=== PATIENT | female | born 1950 | race Caucasian/White ===

== ENCOUNTER 2025-03-10 09:39 | Observation (INO) ==
--- NOTE | 2025-02-09 10:18 | PAT Medication Instructions ---
Medication Instructions Date of Service February 09, 2025 Home Medications calcium carbonate 600 mg PO BID multivitamin 1 tab PO DAILY cholecalciferol (vitamin D3) 125 mcg (5,000 unit) tablet (Vitamin D3) 125 mcg PO QAM turmeric 400 mg capsule 400 mg PO TID STOP taking 2 weeks before surgery (or as soon as possible if surgery is within 2 weeks) turmeric 400 mg capsule 400 mg PO TID DO NOT take the morning of surgery calcium carbonate 600 mg PO BID multivitamin 1 tab PO DAILY cholecalciferol (vitamin D3) 125 mcg (5,000 unit) tablet (Vitamin D3) 125 mcg PO QAM Take evening before surgery calcium carbonate 600 mg PO BID Other Notes NOTHING TO EAT OR DRINK AFTER MIDNIGHT. If you have any questions please call us at [phone] or [phone] or [phone] or [phone]
--- NOTE | 2025-02-11 09:58 | Anesthesiology Consultation ---
Date of Service February 11, 2025 Assessment & Plan (1) Encounter for pre-operative examination: - awaiting surgeon ordered PCP clearance 02/15/25, Dr. Zoey Reyes. - Outpatient joint assessment: Patient is currently scheduled for inpatient pathway. If re-evaluated and patient/surgeon requests outpatient pathway, patient is not ideal candidate for outpatient joint program. Chart Review Chart Review: Pending: Refer to Additional Notes / Consult section and Patient seen in Pre Admission Testing Teaching & Discussion Pre-Anesthesia Teaching/Discussion Notes: Instructed NPO after midnight before surgery, except medications with 15 cc of water. Medication instructions provided according to the PAT guidelines. History Surgery Operation Date: 03/10/25 10:25 Proposed Procedures p Left Total Hip Arthroplasty - Dexter Gupta MD Height/Weight Height: 5 ft 5 in Weight: 76.2 kg Allergies Allergy/AdvReac Type Severity Reaction Status Date / Time No Known Allergies Allergy Verified 02/09/25 08:04 Medications Home Medications Medication Instructions Recorded Confirmed Last Taken calcium carbonate 600 mg PO BID 07/05/19 02/09/25 Unknown multivitamin 1 tab PO DAILY 07/05/19 02/09/25 Unknown cholecalciferol (vitamin D3) 125 125 mcg PO QAM 02/09/25 02/09/25 Unknown mcg (5,000 unit) tablet (Vitamin D3) turmeric 400 mg capsule 400 mg PO TID 02/09/25 02/09/25 Unknown doxycycline hyclate 100 mg tablet 100 mg PO BID 02/11/25 02/11/25 Unknown Past Medical History Medical History (Updated 02/11/25 @ 12:38 by Cristina Siegel PA-C) Goiter Monitoring-reports WNL TSH 12/2024 History of Lyme disease original infection 07/2023 and treated with doxycycline at that time. 07/2024 had testing done which showed active infection, finished doxycycline but had persistent bilat leg pain- currently on doxycycline x 15 days-ongoing monitoring with PCP-severe pain improved after seeing chiropractor Multiple thyroid nodules Monitoring Patient denies h/o stroke, seizures, heart attack, heart failure, DM, HTN, blood clots/DVTs or blood transfusions. Exercise / Class Metabolic Activity II 4-5 Yardwork/Stairs/Walk up hill (denies chest discomfort or shortness of breath with one flight of stairs) Past Surgical History Surgical History History of colonoscopy History of tonsillectomy History of tooth extraction Upper Dentures/Lower Partial Past Anesthesia History No Hx of Anesthesia Complications and No Family Hx of Anesthesia Complications History of PONV No Hx of PONV and Hx of Motion Sickness Social History Smoking Status: Never smoker Do You Dip or Chew Tobacco: No Hx Alcohol Use: No Hx Substance Use: No substance use type: does not use Review of Systems Patient denies chest pain, shortness of breath, dyspnea on exertion, snoring, witnessed apneas, reflux, fever, chills, cough, wheezing, or palpitations. Physical Exam Vital Signs Vitals BP 122/78 P 80 TEMP 97.8 SP02 98% on RA RESP 18 Physical Patient resting comfortably in chair in no acute distress, alert and oriented, responding appropriately throughout visit Full cervical extension range of motion without pain TMD 3.5 finger breadths Mallampati Score 2 Dentition: upper dentures, lower bridge Lungs: normal respiratory effort. Good air movement, clear throughout to auscultation, no adventitious breath sounds Cardiac: regular rate and rhythm, no murmurs noted Carotid arteries: negative bruit bilat Lab Results Anesthesia Preop Results Results Anesthesia Widget: WBC 4.93 K/ul (4.8-10.8) 02/11/25 Hgb 13.6 g/dl (12.0-16.0) 02/11/25 Hct 41.3 % (37.0-47.0) 02/11/25 Plt 246 K/uL (130-400) 02/11/25 Na 143 mmol/L (136-145) 02/11/25 K 4.7 mmol/L (3.5-5.1) 02/11/25 Cl 107 mmol/L (98-107) 02/11/25 CO2 33 mmol/L (21-32) H 02/11/25 BUN 20 mg/dl (6-23) 02/11/25 Creat 0.91 mg/dl (0.6-1.2) 02/11/25 Glucose Level 96 mg/dl (70-99(Fasting)) 02/11/25 PT 10.6 Seconds (9.0-12.0) 02/11/25 PTT 25 Seconds (21-31) 02/11/25 INR 1.0 (0.9-1.1) 02/11/25 Urine Color Yellow 02/11/25 Urine Appearance Clear (Clear) 02/11/25 Urine pH 7.5 (4.5-7.5) 02/11/25 Urine Specific [place] 1.011 (1.000-1.030) 02/11/25 Urine Protein Negative (Negative) 02/11/25 Urine Glucose (UA) Negative (Negative) 02/11/25 Urine Ketones Negative (Negative) 02/11/25 Urine Blood Negative (Negative) 02/11/25 Urine Nitrite Negative (Negative) 02/11/25 Urine Bilirubin Negative (Negative) 02/11/25 Urine Urobilinogen Negative (Negative) 02/11/25 Urine Leukocyte Esterase Negative (Negative) 02/11/25 Blood Type A Positive 02/11/25 Antibody Screen NEGATIVE 02/11/25 Testing Electrocardiogram Date: 02/11/25 NSR, rate 76 bpm Echocardiogram Date: 12/15/24 EF 65% Mildly hypertrophied LV wall thickness Mildly sclerotic aortic root Impaired LV relaxation with mildly elevated LV filling pressures
[~2025-03-10 09:39] MED LIST: ACETAMINOPHEN 500 MG TAB PO SCH; BUPIVACAINE 0.5 % 5 MG/1 ML PF 10ML VIAL ONE; CeleBREX 200 MG CAP PO SCH; FAMOTIDINE 20 MG TAB PO SCH; LR 500ML BOLUS, THEN 15ML/HR IV SCH; MIDAZOLAM HCL 1 MG/ML 2ML VIAL ONE; ONDANSETRON INJ 2 MG/ML 2 ML VIAL ONE; PROPOFOL IV EMULSION 10 MG/ML 100 ML VIAL IV ONE; ROPIV 0.5% 246mg, Ketorolac 30mg, EPINEPHrine 0.5mg in NSS INFIL SCH; Scopolamine 1 MG TDSY TD SCH; TRANEXAMIC ACID 1,000 MG **IV Intra-op IV SCH; TRANEXAMIC ACID 1,000 MG **IV Pre-op IV SCH; ceFAZolin 2000MG 2,000 MG/15 ML SYR IV SCH; dexAMETHasone**PF** 10 MG/ML VIAL IV SCH; fentaNYL citrate PF 100 MCG/2 ML VIAL ONE; traMADol HCL 50 MG TABLET PO SCH
--- NOTE | 2025-03-10 09:46 | History & Physical Bridge Note ---
Date of Service March 10, 2025 History & Physical Bridge Note I have examined the patient, reviewed the History & Physical and in the interval since the performance of the History & Physical I have noted the following changes of clinical significance: no changes noted
[2025-03-10] MEDS: dexAMETHasone**PF** 10 MG/ML VIAL IV SCH (10:13)
[2025-03-10] MEDS: ACETAMINOPHEN 500 MG TAB PO SCH ×2 (10:13→14:23)
[2025-03-10] MEDS: LR 500ML BOLUS, THEN 15ML/HR IV SCH (10:13)
[2025-03-10] MEDS: CeleBREX 200 MG CAP PO SCH (10:14)
[2025-03-10] MEDS: traMADol HCL 50 MG TABLET PO SCH (10:14)
[2025-03-10] MEDS: FAMOTIDINE 20 MG TAB PO SCH (10:14)
[2025-03-10] MEDS: Scopolamine 1 MG TDSY TD SCH (10:14)
[2025-03-10] MEDS: LR 60ML/HR IV SCH (10:15)
[2025-03-10] MEDS: TRANEXAMIC ACID 1,000 MG **IV Pre-op IV SCH (10:30)
[2025-03-10] MEDS: ceFAZolin 2000MG 2,000 MG/15 ML SYR IV SCH (10:41)
[2025-03-10] MEDS ORDERED: HYDROmorphone INJ 1 MG/ML SYRINGE IV PRN (10:42)
[2025-03-10] MEDS ORDERED: ONDANSETRON INJ 2 MG/ML 2 ML VIAL IV PRN ×2 (10:42→13:48)
[2025-03-10] MEDS ORDERED: ATROPINE SULFATE 0.1 MG/ML 10ML SYR IV PRN (10:42)
[2025-03-10] MEDS ORDERED: HYDROmorphone INJ 2 MG/ML SYR/VIAL IV PRN (10:42)
[2025-03-10] MEDS ORDERED: ePHEDrine sulfate 50 MG/ML AMP IV PRN (10:42)
[2025-03-10] MEDS: ROPIV 0.5% 246mg, Ketorolac 30mg, EPINEPHrine 0.5mg in NSS INFIL SCH (11:08)
[2025-03-10] MEDS: ORTHO JOINT ANESTHETIC ONE (11:08)
[2025-03-10] MEDS: TRANEXAMIC ACID 1,000 MG **IV Intra-op IV SCH (11:43)
--- NOTE | 2025-03-10 12:11 | Operative Report ---
Post Operative Report Pre & Post Diagnosis Operation Date: 03/10/25 10:25 Pre-Op Diagnosis: Left Hip Osteoarthritis Post-Op Diagnosis: Left Hip Osteoarthritis I identified the patient and participated in the time-out.: Yes Procedure Operation Date: 03/10/25 10:25 Actual Procedures p Left Total Hip Arthroplasty, Uncemented(Left) - Dexter Gupta MD Surgeon Dexter Gupta MD Line Director Yadiel Palm PA-C. No resident or fellow was available to assist Estimated Blood Loss 100 Findings Consistent with Post-Op Diagnosis Specimens Left femoral head Anesthesia Type Spinal MAC Complications none Disposition Disposition: Recovery Room Indications 75-year-old female, with left hip osteoarthritis refractory to conservative management. X-rays demonstrate joint space destruction, subchondral sclerosis and cysts. I had a long discussion with her about the risks and benefits of surgery, alternatives to surgery, and expected outcomes. After reviewing all these she elected to proceed with surgery. All questions were answered. Informed consent was signed. Description of Procedure Patient was identified in the preoperative holding area where the surgical site, left hip, was marked. A spinal anesthetic was placed, then the patient was brought back to the main operating room, placed in the operating table and moved into the lateral decubitus position. Axillary roll was placed. All bony prominences were padded. Perioperative antibiotics and tranexamic acid 1 gram IV were administered. The operative extremity was prepped and draped in the normal sterile fashion. Prior to incision a multidisciplinary timeout was called. All in the room were in agreement. We began by making an incision for a posterior approach to the hip. We dissected down through subcutaneous tissues to the level of the fascia. The fascia was incised in line with the incision. Charnley bow was placed. Fatty tissue was reflected posteriorly off the back of the greater trochanter to ex pose the piriformis and short external rotators of the hip. Quadratus femoris was taken off the femur subperiosteally. The piriformis and short external rotators were dissected off the posterior aspect of the hip. A box cut was made in the capsule. Inferior hip capsule was released off the femur. The femoral head was dislocated. The femoral neck cut was made at our preoperative template. The acetabulum was then exposed. The labrum was sharply excised. Contents of the cotyloid fossa were removed with electrocautery. We then began reaming at a size 8 mm less than our preoperative template. We reamed up by [address] the way up to a size 50 mm cup. This gave us good bleeding cancellus bone circumferentially. The acetabulum was then irrigated out and dried. The real [place] Gription cup was then impacted down into position with 45 degrees of lateral opening and 25 degrees of anteversion. A single cancellous bone screw was placed up into the ilium. Excellent fixation was obtained. A trial liner for a 32 mm femoral head was then placed. Next we turned our attention to the femur. The lateral neck was removed with a box osteotome. Intramedullary guide was used to establish the intramedullary canal. We then broached all the way up to a size 4. We began trialing with a high offset neck and a +5 head. Hip was reduced. Leg lengths were symmetric. The hip was stable in extension and external rotation, and stable in the sleeper position. At 90 degrees of hip flexion the hip could be internally rotated 75 degrees before levering out of the cup. I was very happy with the stability exam. Therefore the hip was dislocated and the femoral trial was removed. The acetabulum was re-exposed, and the trial liner was removed. [place] hole eliminator screw was placed. An Altrx polyethylene liner for a 32 mm femoral head was then impacted into the shell. The locking mechanism was checked to ensure that it had engaged which it had. The femur was re-exposed. The femoral canal was irrigated and dried. The real Actis femoral stem was opened up. This was impacted down into position. The femoral head was opened up and gently impacted down onto the trunnion. The hip was atraumatically reduced. Another 1 gram of IV tranexamic acid was started prior to closure. The wound was irrigated out with sterile Betadine solution. The periarticular injection cocktail was then placed. The short external rotators, piriformis, and posterior capsule were repaired through drill holes in the greater trochanter using #2 Vicryl. The fascia was run with a looped #1 PDS. The subcutaneous layer was closed with #1 PDS. The dermal layer was closed with 2-0 Vicryl. Zip line was used for the skin followed by a Silverlon dressing. A compressive dressing was then placed. The patient was then rolled supine. Leg lengths were rechecked and were symmetric. An abduction pillow was placed. Sedation was lifted and the patient was transferred to the recovery room in stable condition. Summary of implants: Depuy [place] Gription Acetabular Shell Sector Cup, 50 mm outer diameter [place] Cancellous bone screw, 6.5 x 35 mm [place] hole eliminator [place] Altrx Polyethylene Acetabular Liner, Neutral, with a 32 mm inner diameter DePuy Actis collared cementless Femoral stem, 12/14 taper, size 4 high offset 32 mm ceramic femoral head with +5 offset Postoperative course: Patient will be admitted overnight from the recovery room. Patient will be weightbearing as tolerated with posterior hip precautions. Aspirin for DVT prophylaxis I attest to the content of the Intraoperative Record and any orders documented therein. Any exceptions are noted below.
--- NOTE | 2025-03-10 12:31 | Operative Report ---
Post Operative Report Pre & Post Diagnosis Operation Date: 03/10/25 10:25 Pre-Op Diagnosis: Left Hip Osteoarthritis Post-Op Diagnosis: Left Hip Osteoarthritis I identified the patient and participated in the time-out.: Yes Procedure Operation Date: 03/10/25 10:25 Actual Procedures p Left Total Hip Arthroplasty, Uncemented(Left) - Dexter Gupta MD Surgeon Dexter Gupta MD Grain Trimmer Yadiel Palm PA-C. No resident or fellow was available to assist Estimated Blood Loss 100 Findings Consistent with Post-Op Diagnosis Specimens Femoral head Description of Procedure I was present for the entire case. I assisted with patient positioning, prepping, draping, retraction, suctioning, wound closure, dressing application. Please refer to Dr. Gupta's procedure note for full details. I attest to the content of the Intraoperative Record and any orders documented therein. Any exceptions are noted below.
--- NOTE | 2025-03-10 12:59 | XRay Report ---
XR pelvis 1-2V routine CLINICAL HISTORY: In PACU - Post Surgical COMPARISON: 02/11/2025 FINDINGS: Left hip prosthesis shows no hardware complication. There is expected soft tissue gas. IMPRESSION: Unremarkable postoperative exam. ACT 112: Negative or not required by law. Electronically signed by: Sandro Mccarthy M.D. 03/10/2025 12:58 PM
--- NOTE | 2025-03-10 13:34 | Anesthesiology Progress Note ---
Date of Service March 10, 2025 Anesthesia Post Procedure Vital Signs Vital Signs: Temp Pulse Resp BP BP Pulse Ox O2 Del Method 03/10/25 13:30 74 12 122/59 L 95 Room Air 03/10/25 13:15 76 14 123/65 94 Room Air 03/10/25 13:05 36.3 C L 77 16 126/64 93 Room Air 03/10/25 12:55 76 12 124/68 94 Room Air 03/10/25 12:45 36.4 C L 77 12 125/66 95 Room Air 03/10/25 12:35 71 12 111/57 L 100 Oxymask 03/10/25 12:25 74 16 112/61 100 Oxymask 03/10/25 12:18 36.6 C 75 14 118/64 100 Oxymask 03/10/25 10:02 36.7 C 90 22 148/77 H 98 Room Air O2 Flow Rate 03/10/25 13:30 03/10/25 13:15 03/10/25 13:05 03/10/25 12:55 03/10/25 12:45 03/10/25 12:35 4 03/10/25 12:25 4 03/10/25 12:18 6 03/10/25 10:02 Transfer of Care Handoff Completed per policy Notes Mental Status: alert / awake / arousable Patient Amnestic to Procedure: Yes Nausea / Vomiting: adequately controlled Pain: adequately controlled Airway Patency, RR, SpO2: stable & adequate BP & HR: stable & adequate Hydration State: stable & adequate Neuraxial Anesthesia: was administered and sensory block is resolving Anesthetic Complications: no major complications apparent and Pt Satisfied with anesthetic care
[2025-03-10] MEDS ORDERED: bisacodyL 10 MG SUPP PR PRN (13:48)
[2025-03-10] MEDS ORDERED: HYDROmorphone INJ 0.5 MG/0.5 ML SYR IV PRN (13:48)
[2025-03-10] MEDS ORDERED: METOCLOPRAMIDE HCL INJ 5 MG/ML 2 ML VIAL IV PRN (13:48)
[2025-03-10] MEDS ORDERED: ALUMINUM/MAGNESIUM SUSP 30 ML UDC PO PRN (13:48)
[2025-03-10] MEDS ORDERED: MAGNESIUM HYDROXIDE SUSP 30 ML UDC PO PRN (13:48)
[2025-03-10] MEDS ORDERED: diphenhydrAMINE Capsule 25 MG CAP PO PRN (13:48)
[2025-03-10] MEDS ORDERED: NALOXONE HCL 0.4 MG/1 ML VIAL/CARP IV PRN (13:48)
[2025-03-10] MEDS: SODIUM CHLORIDE 0.9% 1,000 ML IV SCH (14:17)
[2025-03-10] MEDS: Scopolamine CHECK PATCH PLACEMENT SCH (14:21)
[2025-03-10] MEDS: KETOROLAC TROMETHAMINE 15 MG/ML VIAL IV SCH (14:23)
[2025-03-10] MEDS ORDERED: Scopolamine CHECK PATCH PLACEMENT SCH ×2 (16:00)
[2025-03-10] MEDS: ceFAZolin 1000MG 1,000 MG/7.5 ML SYR IV SCH (17:53)
[2025-03-10] MEDS: TRANEXAMIC ACID / 0.7% NACL 1,000 MG/100 ML BAG IV SCH (17:54)
[2025-03-10] MEDS: oxyCODONE HCL IR 5 MG TAB (IMMEDIATE RELEASE) PO PRN (18:03)
[2025-03-10] MEDS ORDERED: NON-FORMULARY MEDICATION (Doxycycline Hyclate 100 mg Tablet) PO SCH (21:00)
[2025-03-10] MEDS: SENNA 8.6 MG TAB PO SCH (21:03)
[2025-03-10] MEDS: DOCUSATE SODIUM 100 MG CAP PO SCH (21:03)
[2025-03-10] MEDS: CALCIUM CARBONATE 1250MG TAB PO SCH (23:29)
[2025-03-11 06:15] LABS: Basophils # (auto) 0.02 K/uL (0.00-0.20); Basophils % (auto) 0.2 %; Hematocrit (blood only) 34.9 % (37.0-47.0); Hemoglobin 11.3 g/dl (12.0-16.0); Immature Granulocytes # (auto) 0.04 K/uL (0.01-0.20); Immature Granulocytes % (auto) 0.3 %; Lymphocytes # (auto) 1.04 K/uL (1.20-3.40); Lymphocytes % (auto) 8.9 %; Mean Corpuscular Hemoglobin 29.4 pg (25.0-34.0); Mean Corpuscular Hgb Conc 32.4 g/dL (32.0-36.0); Mean Corpuscular Volume 90.9 fL (80.0-100.0); Mean Platelet Volume 10.8 fL (9.4-12.4); Monocytes # (auto) 1.12 K/uL (0.11-0.59); Monocytes % (auto) 9.6 %; Platelet Count 199 K/uL (130-400); RDW Standard Deviation 43.3 fL (36.4-46.3); Red Blood Count 3.84 M/uL (4.20-5.40); White Blood Count 11.72 K/ul (4.8-10.8)
[2025-03-11 06:37] LABS: BUN Creatinine Ratio 24.2 (10-20); Calcium 8.5 mg/dl (8.6-10.3); Creatinine Clr Calc Pharmacy 54.1 ml/min; Potassium 4.3 mmol/L (3.5-5.1)
[2025-03-11 08:01] VITALS: BP 123/68; PULSE 90; RESP 16; TEMP 97.7; O2SAT 97
[2025-03-11] MEDS ORDERED: NON-FORMULARY MEDICATION (Multivitamin tablet) PO SCH (09:00)
[2025-03-11] MEDS: dexAMETHasone 10 MG in SYRINGE 0 ML IV SCH (09:27)
[2025-03-11] MEDS: CHOLECALCIFEROL 125 MCG (5,000 UNITS) TAB PO SCH (09:28)
[2025-03-11] MEDS: ASPIRIN 81 MG ECTAB PO SCH (09:28)
[2025-03-11] MEDS: MULTIVITAMIN TAB PO SCH (09:28)
--- NOTE | 2025-03-11 10:58 | Orthopedic Progress Note ---
Date of Service March 11, 2025 Assessment & Plan (1) S/P total left hip arthroplasty: Plan: Postop day #1 status post left total hip arthroplasty with Dr. Gupta. Patient seems to be doing very well overall overall. Vital signs have remained stable. Postoperative labs show a mild leukocytosis at 11.72 likely secondary to surgery and steroids. No evidence of infection. Mild hemoglobin 11.3 likely secondary to acute blood loss from surgery. No thrombocytopenia. Postoperative x-ray shows expected findings with no concerns. Patient's overlying dressing was removed and silverlon dressing is clean, dry, intact. This will be left in place for the next 2 weeks. She can shower with this as long as the dressing is intact. Do not submerge underwater. We reviewed hip precautions and using the walker at all times for balance. Pain control with Tylenol, diclofenac, and oxycodone. PDMP reviewed with no concerns. Prescriptions for oxycodone and diclofenac were sent to pharmacy. DVT prophylaxis with JOHNNY stockings and aspirin 81 mg twice daily for the next 30 days. Icing instructions reviewed. Patient will participate with home health therapy for the next 2 weeks, and then has plans for outpatient physical therapy to begin after that. She has a 2-week follow-up appointment scheduled with our office. Patient was instructed to contact our office with any questions or concerns in the interim. Admission and Anticipated Discharge Date Admission Date: March 10, 2025 Mago Mccormick is seen in bed this morning. She states that she is doing well overall. Does not have any pain at rest but feels a little uncomfortable in her hip when she tries to move the hip. She feels this is expected type of pain. She denies any fevers, chills, chest pain, shortness of breath, nausea, vomiting, numbness or tingling in her left lower extremity. She feels comfortable going home today. Physical Exam Constitutional: Well-developed, well-nourished, resting comfortably in bed. No distress. Pleasant. Cardiovascular: Left DP and PT pulse 2+ Musculoskeletal: Left lower extremity: Bulky dressing taken down. Silverlon dressing is clean, dry, intact. There is no drainage or ecchymotic changes. Hip and buttock without induration. No surrounding erythema. Strength 5/5 with ankle plantarflexion, dorsiflexion, eversion. Moves all toes. JOHNNY stockings are in place bilateral lower extremities Skin: [place] and warm, dry. Capillary refill less than 2 seconds in left toes Neurologic: No sensory deficits left lower extremity L3-S1 distribution Results & Data Vital Signs (Past 12 Hours) Vital Signs Temp Pulse Resp BP Pulse Ox O2 Del Method 03/11/25 08:00 97.7 F 90 16 123/68 97 Room Air 03/11/25 03:00 97.5 F L 67 17 108/73 95 Room Air 03/10/25 23:08 97.5 F L 65 18 100/65 95 Room Air Laboratory Results 03/11/25 05:37 WBC 11.72 H RBC 3.84 L Hgb 11.3 L Hct 34.9 L MCV 90.9 MCH 29.4 MCHC 32.4 RDW Std Deviation 43.3 RDW Coeff of Carla 13.0 Plt Count 199 MPV 10.8 Immature Gran % (Auto) 0.3 Neut % (Auto) 81.0 Lymph % (Auto) 8.9 Ward % (Auto) 9.6 Eos % (Auto) 0.0 Baso % (Auto) 0.2 Neut # (Auto) 9.50 H Lymph # (Auto) 1.04 L Ward # (Auto) 1.12 H Eos # (Auto) 0.00 Baso # (Auto) 0.02 Immature Gran # (Auto) 0.04 Sodium 140 Potassium 4.3 Chloride 109 H Carbon Dioxide 27 Anion Gap 4 BUN 22 Creatinine 0.91 Est Cr Clr Drug Dosing 54.1 eGFR 65.79 BUN/Creatinine Ratio 24.2 H Glucose 111 H Calcium 8.5 L Diagnostic Findings Pelvis X-Ray 03/10/25 12:28 XR pelvis 1-2V routine CLINICAL HISTORY: In PACU - Post Surgical COMPARISON: 02/11/2025 FINDINGS: Left hip prosthesis shows no hardware complication. There is expected soft tissue gas. IMPRESSION: Unremarkable postoperative exam. ACT 112: Negative or not required by law. Electronically signed by: Sandro Mccarthy M.D. 03/10/2025 12:58 PM
--- NOTE | 2025-03-11 11:05 | Discharge Summary ---
Date of Service March 11, 2025 Principal Diagnosis Status post left total hip arthroplasty Discharge Data Allergies Allergy/AdvReac Type Severity Reaction Status Date / Time No Known Allergies Allergy Verified 03/10/25 09:49 Procedures Performed Operation Date: 03/10/25 10:25 Actual Procedures p Left Total Hip Arthroplasty, Uncemented(Left) - Dexter Gupta MD Hospital Course (1) S/P total left hip arthroplasty: Anny is a 75-year-old female who underwent an uncomplicated left total hip arthroplasty with Dr. Gupta at [facility] on 03/10/2025. She was admitted to the hospital overnight and received 24 hours of IV Ancef. Her pain was well-controlled and she did not have any complications. Vital signs remained stable. Postoperative labs show a mild leukocytosis at 11.72 likely secondary to surgery and steroids. No evidence of infection. Mild hemoglobin 11.3 likely secondary to acute blood loss from surgery. No thrombocytopenia. Postoperative x-ray shows expected findings with no concerns. Patient participated with physical therapy and Occupational Therapy and was deemed appropriate to be discharged home with home health services for the first 2 weeks followed by outpatient physical therapy to begin in 2 weeks. Precautions were reviewed. She will be weightbearing as tolerated with a walker at all times for balance. She has a Silverlon dressing in place that will be left in place for the next 2 weeks and can shower with this as long as the dressing is intact. Do not submerge underwater. Pain control with Tylenol, diclofenac, and oxycodone. PDMP reviewed with no concerns. Prescriptions for oxycodone and diclofenac were sent to pharmacy. DVT prophylaxis with JOHNNY stockings and aspirin 81 mg twice daily for the next 30 days. Icing instructions were reviewed. Patient has a 2-week follow-up scheduled in our office. She was given instructions to contact our office with any questions or concerns in the interim. Total Time Total Time Spent Total Time Spent (In Minutes): 20 Discharge Plan Discharge Items Patient Disposition: Home - Home Health Services Reason For Visit: Left Hip Osteoarthritis Discharge Diagnosis: s/p left total hip arthroplasty Activity: Per Instructions section Non-emergency contact: Surgeon Call non-emergency contact if: your pain is not controlled, you have a fever, your wound has increased redness, your wound has increased drainage and your wound pain has increased Follow-up/Referrals: Zoey Campo MD [Primary Care Provider] - Earl Hsieh PA-C [Physician Bending Press Operator] - 03/23/25 9:30 am Diet: Regular Addtl Attending Provider Instructions: Post-operative Instructions Dear Patient and Family/Friends, Before you are discharged from the hospital, it is important to know what to expect when you get home after surgery. To that end, we have created this sheet of discharge instructions which covers many commonly asked questions. Make sure you go through this sheet in its entirety with your nurse before you are discharged. Please note that we will go over the specifics of your surgery and recovery when you return for your first post-operative visit. Sincerely, Dr. Gupta Pain Expect to be in a fair amount of pain after surgery. Remember, our goal is not to eliminate your pain, but to make it tolerable. It is a good idea to stay ahead of your pain by taking the medications you were prescribed once you get home. Typically, the pain starts improving 3-7 days after surgery. You should start weaning off the narcotic pain medication (oxycodone, hydrocodone, hydromorphone, morphine) as soon as your pain improves. Please call our office if your pain is not adequately controlled. - Tylenol 1000 mg every 8 hours Diclofenac 75 mg twice daily as prescribed Oxycodone as prescribed for breakthrough pain. Blood clot prevention -Aspirin 81 mg twice daily for 30 days. You received a dose this morning. Start with a dose this evening. Ice Ice your operative site at least 5 times a day for 15-30 minutes at a time. Make sure you have a thin cloth between the ice or cooling unit and your skin to prevent stevenson bite. This is especially important if you received a nerve block. Continue icing your operative site for the first 5-7 days after surgery, then as needed. Diet/Nausea/Vomiting Start by drinking clear liquids and eating crackers. If you can tolerate this, then you may resume your normal diet. Please call our office if you have intractable nausea or vomiting, or, if after hours, you may go to the Emergency Room for help. Constipation Constipation is a common side effect of narcotic pain medication. If you have not had a bowel movement within 2 days after surgery, we recommend purchasing an over the counter laxative such as Milk of Magnesia, Dulcolax, or Miralax from a local pharmacy, and taking it as instructed. Call our clinic if any questions. Nerve block The anesthesia team sometimes places a nerve block to help with post-operative pain control. This results in significant numbness and inability to move the extremity. The nerve block usually wears off in 8-12 hours, but sometimes can last up to 24 hours. Nerve blocks typically wear off quickly, so start taking pain medication as soon as you start feeling soreness near your surgical site. Weight bearing and Range of Motion. You can be weightbearing as tolerated with the use of a walker at all times. Be sure to pay close attention to the hip or cautions as advised Physical therapy You will have home physical therapy for the first 2 weeks after surgery. Please ensure you have outpatient physical therapy coordinated to begin after your 2- week follow-up appointment in our office. Wound care and showering Leave the rubber silverlon dressing in place until your 2-week follow-up appointment. As long as the dressing is intact, you can shower. Do not submerge your wound underwater. Monitor for increase in drainage into the dressing. JOHNNY stockings If you were given white stockings, these are to be worn at all times except to shower (on both legs) for the first 2 weeks after surgery. Driving You may not drive while taking narcotic pain medication or while in a cast, splint, sling or brace. You, the patient, need to make the final determination about when you are safe to drive, however, the earliest you may consider driving after surgery is below: Hand/Wrist/Elbow Surgery: 3 days Shoulder Surgery: 2 weeks Hip,/Knee/Ankle Surgery: 4 weeks Fracture repair: 6 weeks Return to Work Your return to work depends on what surgery was done and what type of work you do. Please bring any paperwork your employer needs completed to your first post-operative visit. Also, bring a description of your job duties, as this helps us to understand what risks you may face at work. Travel Avoid long distance travel (greater than 1 hour) in airplanes and cars for the first 6 weeks after surgery. If you must travel, you need to have a Doppler ultrasound done before you travel to rule out a blood clot in your legs. Follow-up You have a 2-week follow-up appointment scheduled When to call the office It is normal to have swelling and bruising in the limb that was operated on. This will improve with time. It is also normal to have fevers for the first 2 days after surgery. Reasons you should call your doctor include: Uncontrolled pain; Nausea, vomiting, or constipation that does not improve with medication; Fevers over 101.5, chills, sweats; Drainage or bleeding from the wound; Foul odor; Spreading areas of redness; Any other concerns. Contact Information Please call Dr. Gupta's office at [phone] with any concerns. Pending Studies at Discharge: Yes Studies:: Femoral head routine pathology Stand-Alone Forms: My [facility], Smoking Cessation Medications and DC Order Prescriptions: New acetaminophen [Tylenol Extra Strength] 500 mg Tablet 1,000 mg PO Q8 Qty: 30 0RF aspirin 81 mg Tablet,Delayed Release (Dr/Ec) 81 mg PO BID Qty: 30 0RF oxycodone 5 mg Tablet 5 - 10 mg PO Q4H PRN (Reason: pain) Qty: 20 0RF Rx Instructions: Max 6 tabs/day diclofenac sodium 75 mg tablet,delayed release (DR/EC) 75 mg PO BID 30 Days Qty: 60 1RF Continued calcium carbonate 600 mg calcium (1,500 mg) tablet 600 mg PO BID multivitamin tablet 1 tab PO DAILY cholecalciferol (vitamin D3) [Vitamin D3] 125 mcg (5,000 unit) Tablet 125 mcg PO QAM Held turmeric 400 mg Capsule 400 mg PO TID Hold Instructions: Resume on 04/22/25. Rx Instructions: take with each meal Discontinued doxycycline hyclate 100 mg Tablet 100 mg PO BID Discharge Orders: Discharge Order (Routine); Ordered 03/11/25 Ordered By: Yadiel Love/Other Patient Handouts: DVT Post Op Prevention, How Your Hip Works Admission Data Admit Date/Time: 03/10/25 12:28 Attending Provider: Dexter Gupta Admit Provider: Dexter Gupta Primary Care Provider: Zoey Campo Other Providers: [facility],Home Health Other Interventions: Discharge Summary Assessment (RN) Last Done: 03/11/25 11:38
[2025-03-11] MEDS ORDERED: CeleBREX 200 MG CAP PO SCH (21:00)
== END 2025-03-11 12:29 | disposition home health service (06) | DRG 470 ==
LOC: ASU 09:39 → 3E 12:28 → INTOOBSV 12:28